=== PATIENT | female | born 1940 | race Caucasian/White ===

== ENCOUNTER → 2016-06-26 | Outpatient (CLI) | payer MEDICARE, OTHER | END | disposition home or self-care (01) | LOC: GMAB 12:28 | PROVIDERS: ATTEND Family Medicine | DX: E78.2 Mixed hyperlipidemia (principal) ==

== ENCOUNTER → 2016-08-05 | Outpatient (CLI) | payer MEDICARE, OTHER ==
--- NOTE | 2016-08-07 10:17 | MAM ---
History: Well woman exam. Personal history of breast cancer status post left malignant lumpectomy. Date of exam: 08/05/2016 Services provided: Bilateral full field digital screening mammography. CAD, the images were reviewed with R2 computer aided detection. FINDINGS: Glandular tissue is scattered glandular pattern with increased mammographic density. Comparison with 2012 exam. No dominant mass, architectural distortion or clustered microcalcification. IMPRESSION: Benign exam Recommendation: Routine annual mammography BIRAD CATEGORY: 2 BENIGN Electronically signed by: Kat Torres MD 08/07/2016 10:17 AM CDT
== END ==
LOC: MAMMO 12:49
PROVIDERS: ATTEND Family Medicine
DX: Z12.31 Encounter for screening mammogram for malignant neoplasm of breast (principal)

== ENCOUNTER → 2017-03-04 | Outpatient (CLI) | payer MEDICARE, OTHER | END | disposition home or self-care (01) | LOC: RESP 11:25 | PROVIDERS: ATTEND Family Medicine | DX: R55 Syncope and collapse (principal) ==

== ENCOUNTER → 2017-07-01 | Outpatient (CLI) | payer MEDICARE, OTHER ==
--- NOTE | 2017-07-02 14:16 | MRI ---
EXAM DESCRIPTION: Brain w/o Contrast: MRI. CLINICAL HISTORY: TENSION-TYPE HEADACHE, UNSPECIFIED COMPARISON: None. TECHNIQUE: Multiplanar, high-field MRI unit, multiple diffusion sequences, multiple conventional sequences without contrast. FINDINGS: Small bilateral foci of bright FLAIR and T2-weighted signal in the periventricular white matter of the occipital lobes. Smaller bilateral foci superior to the body of the lateral ventricles and in the superior bilateral jefferson radiata of the frontoparietal junctions. Normal signal in the bilateral basal ganglia. No hemorrhage, no cerebral edema, no mass-effect. Normal signal in the brainstem and cerebellar hemispheres. No hemorrhage, no cerebral edema, no mass-effect. Concordance of the diffusion and non-diffusion sequences with no diffusion restriction. Cortical sulci, ventricles, and other CSF spaces, and the subdural spaces are normally configured. No effacement or displacement. No midline shift. No extra-axial hemorrhage. Normal flow signal void in the major vessels of the [place], and the venous sinuses. IACs are symmetric bilaterally. Normal signal in the bilateral mastoid air cells. No mass effect in the bilateral cerebellopontine angles. Pituitary gland most of the occupies most of the sella. Base of the cerebellar tonsils is above the foramen magnum. Minimal chronic mucoperiosteal thickening in the bilateral paranasal sinuses. Probable breann bullosa in the right middle turbinate of the nasal passageway. The bony calvarium is intact. IMPRESSION: 1. Symmetric signal in the bilateral periventricular white matter and the bilateral jefferson radiata is most likely related to cerebral microvascular disease. Unlikely to represent inflammatory process, vasculitis, migraine headaches, or demyelinating disorder. No hemorrhage, mass effect, cerebral edema, or midline shift. 2. Normal noncontrast MRI diffusion scan with no evidence of acute or subacute infarction. 3. Minor paranasal sinus abnormalities. Electronically signed by: Dann Fu MD 07/02/2017 2:13 PM CDT
== END ==
LOC: MRI 12:49
PROVIDERS: ATTEND Family Medicine
DX: G44.209 Tension-type headache, unspecified, not intractable (principal)

== ENCOUNTER → 2017-07-16 | Outpatient (CLI) | payer MEDICARE, OTHER ==
--- NOTE | 2017-07-16 14:20 | CT ---
EXAM DESCRIPTION: Abdomen/Pelvis w/wo Contrast: Computed Tomography. CLINICAL HISTORY: ABD PAIN COMPARISON: None. TECHNIQUE: Spiral-axial scans at 5.0 mm intervals through the abdomen and pelvis before and after standard dose nonionic IV contrast. No oral contrast. Coronal and sagittal 2.0 mm reconstructions. 5 mm Delayed helical-axial scans, liver through the pubic symphysis. No adverse reactions. Total Exam DLP 1527.44 mGy - cm. This exam was performed according to our departmental CT dose-optimization program which includes automated exposure control, adjustment of the mA and/or kV according to patient size and/or use of iterative reconstruction technique; to reduce radiation dose to as low as reasonably achievable (ALARA). FINDINGS: Lung bases and pleura: Coronary calcifications or stents. Lung bases and pleura are unremarkable. Liver, Stomach, Spleen, Adrenal Glands: Long axis right lobe 21.3 cm. Minimally dilated intrahepatic ducts with no focal lesions. Stomach negative. Other solid organs unremarkable. Pancreas, Gallbladder, Ducts: Surgical clips in the gallbladder fossa with no fluid. Dilation common bile duct. Pancreas negative. Kidneys and Ureters: Probable tiny cyst or calyx mid right kidney. Mesentery: Minimal stranding abutting the mid transverse colon just above the umbilicus. No free air or free fluid. Aorta: Normal caliber. Small Bowel: Normal caliber with minimal gas proximally and minimal fluid distally. Terminal Ileum/Cecum: Negative. Appendix not visualized. Colon: Minimal wall thickening and decrease in caliber beginning at the level of the hepatic flexure along with multiple diverticula extending to the splenic flexure. Mesenteric stranding abutting the mid transverse colon. Diverticula continuing in the descending colon and sigmoid colon which is minimally redundant. Pelvic Organs: Uterus not retroverted and deviated to the right of midline. 4.1 cm left adnexal mass with mean density +1 Hounsfield units. No calcification wall thickening or abnormal enhancement. Right ovary may be abutting loops of small bowel. No fluid in the cul-de-sac. Urinary bladder nondistended with no calcifications. Spine and Bony Pelvis: Moderate dextroscoliosis T10-L5. Central radiolucency in the L2 vertebral body with sclerotic rim. Spondylosis L1-2, L2-3 and L5-S1. Also facet arthrosis at some levels. No vertebral body compression or destructive lesions. Decreased bone density. Narrowing of the hip joint spaces and spondylosis in the right SI joint and pubic symphysis. Abdominal Wall/Back Soft Tissues: Diastases of the umbilicus not including bowel. IMPRESSION: 1. Diverticulitis versus nonspecific colitis transverse colon with wall thickening, diverticula, overall decrease in the caliber of the bowel, and minimal mesenteric stranding. Diverticular disease extends to the distal sigmoid. 2. greater than 4 cm left ovarian cyst which appears relatively simple. No fluid in the cul-de-sac. Right ovary visualized. Consider follow-up pelvic ultrasound due to size of cyst. 3. Moderate upper lumbar dextroscoliosis with multiple levels of spondylosis. 4. Hepatomegaly with no focal lesions. Dilated intrahepatic and extrahepatic biliary ducts with prior cholecystectomy. No ascites.. Electronically signed by: Dann Fu MD 07/16/2017 2:18 PM CDT CRITICAL COMMUNICATION: The critical value was discussed directly by phone with Dr. Gamino at approximately 1410 hours, on July 17, 2015.
== END | disposition home or self-care (01) ==
LOC: CT 11:42
PROVIDERS: ATTEND Internal Medicine Gastroenterology
DX: R10.9 Unspecified abdominal pain (principal)

== ENCOUNTER → 2017-09-10 | Outpatient (CLI) | payer MEDICARE, OTHER ==
--- NOTE | 2017-09-11 14:11 | MAM ---
EXAM DESCRIPTION: 3D Screening BILATERAL : Digital Mammography. CLINICAL HISTORY: 76 years Female SCREENING . Left Breast cancer diagnosed in 2006. Remote family history of breast cancer. Childbirth. Postmenopausal. HRT 5 or more years ago. Left breast lumpectomy. COMPARISON: 2-D digital screening bilateral study 08/05/2016.. Report from prior examination also reviewed. TECHNIQUE: Bilateral CC and MLO projection full-field images, 3-D tomosynthesis digital mammographic technique. CAD not utilized. FINDINGS: The breast parenchymal density pattern is: Scattered areas of fibroglandular density. No skin thickening or nipple retraction. Bilateral solitary microcalcifications. No focal, stellate mass or density, focal asymmetry , and no suspicious microcalcifications bilaterally. Stable mammograms compared to prior study, taking into account differences in mammographic technique IMPRESSION: BI-RADS CATEGORY: 2 - BENIGN FINDINGS. FOLLOW UP: Routine digital bilateral screening, one year interval from 2018. Written communication explaining the IMPRESSION and follow-up, will be mailed to the patient and referring health care provider. According to the [employer], yearly mammograms are recommended starting at age 40 and continuing as long as a woman is in good health. Any breast change noted on a breast self-exam should be reported promptly to the patient's healthcare provider. Breast MRI is recommended for women with an approximately 20-25% or greater lifetime risk of breast cancer, including women with a strong family history of breast or ovarian cancer and women who have been treated for Hodgkin's disease. A negative mammographic report should not delay tissue diagnosis in patients with significant clinical history or physical findings. Extremely dense breast tissue limits the sensitivity of digital mammography. Electronically signed by: Dann Fu MD 09/11/2017 2:09 PM CDT
== END ==
LOC: MAMMO 12:58
PROVIDERS: ATTEND Family Medicine
DX: Z12.31 Encounter for screening mammogram for malignant neoplasm of breast (principal)

== ENCOUNTER → 2018-06-01 | Outpatient (CLI) | payer MEDICARE, OTHER | LOC: GMAE 16:50 | PROVIDERS: ATTEND Family Medicine | DX: R10.811 Right upper quadrant abdominal tenderness (principal); R10.813 Right lower quadrant abdominal tenderness ==

== ENCOUNTER → 2018-06-03 | Outpatient (CLI) | payer MEDICARE, OTHER ==
--- NOTE | 2018-06-03 08:42 | US ---
EXAM DESCRIPTION: Abdomen,Complete CLINICAL HISTORY: ABD PAIN COMPARISON: None Available. TECHNIQUE: Complete abdominal ultrasound FINDINGS: Visualized portions of the pancreas are unremarkable. No peripancreatic fluid. Bowel gas obscures some areas. Normal caliber of the aorta. Normal appearance of the inferior vena cava. Liver parenchyma is homogeneous in texture with normal echogenicity. No liver mass or intrahepatic bile duct dilatation. No liver surface irregularity. Normal appearance of hepatic veins and portal vein. Liver length of 18 cm is at the upper limits of normal but the configuration suggests a Momo's lobe rather than hepatomegaly. The same configuration was seen at the time the previous CT exam July 16, 2017. Measuring on the coronal CT images, the liver length was 21.5 cm. Gallbladder is not seen, centrally surgically absent. Common bile duct is normal in caliber measuring 3.9 mm. The right kidney measures 11 cm in length. Normal renal cortical echogenicity. The renal cortical thickness appears normal. No right renal mass, shadowing stone or cyst. There is no hydronephrosis. Spleen is normal in size. No focal splenic lesion. The left kidney measures 9.6 cm in length. Normal renal cortical echogenicity. There is thinning of the cortex inferiorly at the lower pole. No left renal mass, shadowing stone or cyst. There is no hydronephrosis. IMPRESSION: No diagnostic abnormality is identified on sonographic evaluation of the upper abdomen. Electronically signed by: Tonio Oliver MD 06/03/2018 8:39 AM FRANCHISE BROKER
== END ==
LOC: US 08:00
PROVIDERS: ATTEND Family Medicine
DX: R10.811 Right upper quadrant abdominal tenderness (principal); R10.813 Right lower quadrant abdominal tenderness

== ENCOUNTER → 2018-08-12 | Outpatient (CLI) | payer MEDICARE, OTHER | LOC: GMAE 10:33 | PROVIDERS: ATTEND Family Medicine | DX: Z79.899 Other long term (current) drug therapy (principal) ==

== ENCOUNTER → 2018-09-15 | Outpatient (CLI) | payer MEDICARE, OTHER ==
--- NOTE | 2018-09-16 13:29 | MAM ---
EXAM DESCRIPTION: 3D Screening BILATERAL : Digital Mammography. CLINICAL HISTORY: 77 years Female ANNUAL SCREENING left breast cancer with lumpectomy and treatment 2006. Remote family history of breast cancer. Childbirth. Postmenopausal for 30 years. No HRT. Lifetime risk of developing breast cancer (Tyrer-Cuzick model)(%): Not calculated COMPARISON: Bilateral screening digital breast tomosynthesis 09/10/2017. TECHNIQUE: Bilateral CC and MLO projection full-field images, digital tomosynthesis mammographic technique. Bilateral digital 2-D full-field MLO images. CAD not available for tomosynthesis or 2-D images. FINDINGS: The breast parenchymal density pattern is: Scattered areas of fibroglandular density. Post surgical changes left breast and anterior dimpling right breast. Bilateral solitary microcalcifications. Bilateral axillary lymph nodes. Architectural distortion at site of prior surgery left breast. Appears stable. No new focal, stellate mass or density, focal asymmetry , and no suspicious microcalcifications bilaterally. Stable mammograms compared to prior study. IMPRESSION: Benign exam. BIRAD CATEGORY: 2 BENIGN FINDINGS. RECOMMENDATIONS: FOLLOW UP: Routine digital bilateral mammographic screening, one year interval from September 2018. Written communication explaining the IMPRESSION and follow-up, will be mailed to the patient and referring health care provider. According to the [employer], yearly mammograms are recommended starting at age 40 and continuing as long as a woman is in good health. Any breast change noted on a breast self-exam should be reported promptly to the patient's healthcare provider. Breast MRI is recommended for women with an approximately 20-25% or greater lifetime risk of breast cancer, including women with a strong family history of breast or ovarian cancer and women who have been treated for Hodgkin's disease. A negative mammographic report should not delay tissue diagnosis in patients with significant clinical history or physical findings. Extremely dense breast tissue limits the sensitivity of digital mammography. Electronically signed by: Dann Fu MD 09/16/2018 1:27 PM CDT
== END ==
LOC: MAMMO 08:00
PROVIDERS: ATTEND Family Medicine
DX: Z12.31 Encounter for screening mammogram for malignant neoplasm of breast (principal)

== ENCOUNTER → 2019-06-01 | Outpatient (CLI) | payer MEDICARE, OTHER | LOC: GMAE 14:15 | PROVIDERS: ATTEND Family Medicine | DX: R10.84 Generalized abdominal pain (principal) ==

== ENCOUNTER → 2019-06-24 | Outpatient (CLI) | payer MEDICARE, OTHER | DX: N83.202 Unspecified ovarian cyst, left side (principal) ==

== ENCOUNTER → 2019-09-20 | Outpatient (CLI) | payer MEDICARE, OTHER ==
--- NOTE | 2019-09-21 16:32 | MAM ---
EXAM DESCRIPTION: 3D Screening BILATERAL . Scanning CLINICAL HISTORY: 78 years Female ANNUAL SCREENING personal history of breast cancer on the left with lumpectomy and treatment 2006. Remote family history of breast cancer.. Lifetime risk of developing breast cancer (Tyrer-Cuzick model)(%): Not calculated due to personal history of breast cancer. COMPARISON: Bilateral screening digital breast tomosynthesis September 2018 and August 2017.. TECHNIQUE: Bilateral CC and MLO projection full-field images, digital tomosynthesis mammographic technique. Bilateral digital 2-D full-field MLO images. CAD available for 2-D images. FINDINGS: The breast parenchymal density pattern is: Heterogeneously dense breast tissue, which may obscure small masses. No skin thickening or nipple retraction. Right breast. Solitary microcalcifications. Architectural distortion retroareolar left breast and left nipple retraction stable. Focal asymmetry posterior medial to the treatment site stable. Axillary nodes. Vascular calcifications. Coarse calcifications.. No new focal, stellate mass or density, focal asymmetry , and no suspicious microcalcifications bilaterally. Stable mammograms compared to prior study. IMPRESSION: Benign exam. BIRAD CATEGORY: 2 BENIGN FINDINGS. RECOMMENDATIONS: FOLLOW UP: Routine digital bilateral mammographic screening, one year interval from September 2019. Written communication explaining the IMPRESSION and follow-up, will be mailed to the patient and referring health care provider. According to the [employer], yearly mammograms are recommended starting at age 40 and continuing as long as a woman is in good health. Any breast change noted on a breast self-exam should be reported promptly to the patient's healthcare provider. Breast MRI is recommended for women with an approximately 20-25% or greater lifetime risk of breast cancer, including women with a strong family history of breast or ovarian cancer and women who have been treated for Hodgkin's disease. A negative mammographic report should not delay tissue diagnosis in patients with significant clinical history or physical findings. Extremely dense breast tissue limits the sensitivity of digital mammography. Electronically signed by: Dann Fu MD 09/21/2019 4:16 PM CDT
== END ==
LOC: MAMMO 10:00
PROVIDERS: ATTEND Family Medicine
DX: Z12.31 Encounter for screening mammogram for malignant neoplasm of breast (principal)

== ENCOUNTER → 2020-03-19 | Outpatient (CLI) | payer MEDICARE, OTHER | LOC: GMAE 14:40 | PROVIDERS: ATTEND Family Medicine | DX: E78.2 Mixed hyperlipidemia (principal); Z79.899 Other long term (current) drug therapy ==